=== PATIENT | female | born 1970 | race Caucasian/White ===

== ENCOUNTER 2019-03-20 21:38 | Inpatient (IN) | payer MEDICAID, OTHER ==
[~2019-03-20] VITALS: Ht 158.8 cm; Wt 80.2 kg
[~2019-03-20 21:38] MED LIST: HYDR-3240 PO; MONT10TA6 PO; TIOT18CA INH
[2019-03-20] MEDS ORDERED: ONDANSETRON 2MG/ML, 2ML IVPush ONE (22:30)
[2019-03-20] MEDS ORDERED: SODIUM CHLORIDE FLUSH 10ML SYR IVF ONE (22:30)
--- NOTE | 2019-03-20 22:48 | NUR ---
LABS COLLECTED AND TUBED TO LAB.
--- NOTE | 2019-03-20 22:50 | NUR ---
PT HERE FOR BILATERAL LEG SWELLING THAT IS CAUSING HER IMENSE PAIN THAT CANNOT BE CONTROLLED A THIS TIME. PT REPORTS THAT SHE CANNOT TAKE IT ANYMORE. PT VERY ANXIOUS AND REQUESTING DILAUDID AT THIS TIME. PT HAD PIV PLACED VIA US. PT TO BE MEDICATED. PT HAS NO S/SX OF TRUAMA AND PER PT IS AT BASELINE. PT CONNECTED TO MONITORS AND CALL LIGHT IN REACH. AWAITING FURTHER ORDERS.
[2019-03-20] MEDS ORDERED: ONDANSETRON 2MG/ML, 2ML ONE (22:53)
[2019-03-20] MEDS ORDERED: HYDROmorphone 2 MG/ML, 1ML ONE (22:54)
[2019-03-20 23:00] LABS: MEAN CORPUSCULAR HEMOGLOBIN 36.9 pg (27.0-34.8); MEAN CORPUSCULAR HGB CONC 32.8 g/dL (32.4-35.8); MEAN CORPUSCULAR VOLUME 112.3 fL (80-100); MEAN PLATELET VOLUME 8.6 fL (7.4-10.4); PLATELET COUNT 172 x10^3/uL (130-400); RED BLOOD COUNT 2.34 x10^6/uL (3.82-5.3); RED CELL DISTRIBUTION WIDTH 24.2 % (9.6-15.2)
[2019-03-20] MEDS: HYDROmorphone 2 MG/ML, 1ML IVPush PRN ×2 (23:00→23:14)
[2019-03-20 23:05] LABS: INTERNATIONAL NORMALIZED RATIO 1.07 (0.93-1.1); PROTHROMBIN TIME 11.2 Seconds (9.6-11.5)
[2019-03-20 23:08] LABS: ANION GAP 10 mmol/L (5-15); CALCIUM 8.6 mg/dL (8.5-10.1); CHLORIDE 99 mmol/L (98-107); MD YES
[2019-03-20 23:11] LABS: ANISOCYTOSIS 2+; BAND#(MANUAL) 1.45 x10^3/uL; BANDS%(MANUAL) 6 % (0-7); LYMPH#(MANUAL) 1.45 x10^3/uL (1-3.4); LYMPHS% (MANUAL) 6 % (22-44); METAMYELOCYTES# (MANUAL) 0.48 x10^3/uL (0-0); METAMYELOCYTES% (MANUAL) 2 % (0-1); MONOS#(MANUAL) 1.21 x10^3/uL (0.3-2.7); MONOS% (MANUAL) 5 % (2-9); MYELOCYTES# (MANUAL) 0.24 x10^3/uL (0-0); MYELOCYTES% (MANUAL) 1 % (0-0); NRBC % (MANUAL) 5 % (0-1); POLYCHROMASIA 1+; SEG#(MANUAL) 19.28 x10^3/uL (1.8-6.8); SEGS% (MANUAL) 80 % (42-75)
[2019-03-20 23:14] LABS: <PLATELET ESTIMATE> ADEQUATE; ALANINE AMINOTRANSFERASE 38 U/L (12-78); ALKALINE PHOSPHATASE 255 U/L (45-117); LARGE PLATELETS 1+; TOTAL PROTEIN 5.5 g/dL (6.4-8.2); TROPONIN I < 0.015 ng/mL (0.000-0.045)
[2019-03-20] MEDS ORDERED: CEFTRIAXONE PMX 1GM/50ML 50 ML IV ONE (23:30)
--- NOTE | 2019-03-21 00:39 | NUR ---
pt report called to tano on tele.
--- NOTE | 2019-03-21 00:39 | NUR ---
TRANSFER HELD BY UNNoel MARMOLEJO UNTIL US IS COMPLETED BY HIM.
[2019-03-21] MEDS ORDERED: ONDANSETRON ODT 4 MG PO PRN (01:00)
[2019-03-21 01:02] VITALS: BP 98/59
[2019-03-21] MEDS ORDERED: CEFTRIAXONE PMX 1GM/50ML 50 ML IV ONE (01:30)
[2019-03-21] MEDS: HEPARIN 5,000 UNITS/ML, 1ML SQ SCH ×3 (01:49→16:35)
[2019-03-21 05:54] LABS: ALBUMIN 1.9 g/dL (3.4-5.0); ANION GAP 8 mmol/L (5-15); CALCIUM 8.4 mg/dL (8.5-10.1); CHLORIDE 100 mmol/L (98-107)
[2019-03-21 05:54] LABS: MEAN CORPUSCULAR HEMOGLOBIN 36.9 pg (27.0-34.8); MEAN CORPUSCULAR HGB CONC 32.7 g/dL (32.4-35.8); MEAN CORPUSCULAR VOLUME 112.8 fL (80-100); MEAN PLATELET VOLUME 9.1 fL (7.4-10.4); PLATELET COUNT 170 x10^3/uL (130-400); RED BLOOD COUNT 2.25 x10^6/uL (3.82-5.3); RED CELL DISTRIBUTION WIDTH 24.4 % (9.6-15.2)
[2019-03-21 05:58] LABS: ALANINE AMINOTRANSFERASE 35 U/L (12-78); ALKALINE PHOSPHATASE 238 U/L (45-117); BILIRUBIN,TOTAL 4.6 mg/dL (0.2-1.0); CREATININE 0.46 mg/dL (0.55-1.02); TOTAL PROTEIN 5.5 g/dL (6.4-8.2)
[2019-03-21 06:30] LABS: MD YES
[2019-03-21 06:33] LABS: BAND#(MANUAL) 2.45 x10^3/uL; BANDS%(MANUAL) 12 % (0-7); LYMPH#(MANUAL) 2.24 x10^3/uL (1-3.4); LYMPHS% (MANUAL) 11 % (22-44); METAMYELOCYTES# (MANUAL) 0.82 x10^3/uL (0-0); METAMYELOCYTES% (MANUAL) 4 % (0-1); MONOS#(MANUAL) 1.63 x10^3/uL (0.3-2.7); MONOS% (MANUAL) 8 % (2-9); NRBC % (MANUAL) 4 % (0-1)
[2019-03-21 06:34] LABS: MYELOCYTES% (MANUAL) 1 % (0-0); SEGS% (MANUAL) 64 % (42-75)
[2019-03-21 06:38] LABS: ANISOCYTOSIS 2+; POLYCHROMASIA 1+
[2019-03-21 06:39] LABS: <PLATELET ESTIMATE> ADEQUATE; <PLT MORPHOLOGY> NORMAL PLT MORPH; SPHEROCYTES 1+
[2019-03-21 08:45] VITALS: BP 114/72
[2019-03-21] MEDS: HYDROmorphone 2 MG/ML, 1ML IVPush PRN ×3 (08:54→21:25)
[2019-03-21 11:39] LABS: CULTURE INDICATED? YES; MICROSCOPIC INDICATED
[2019-03-21 12:00] VITALS: BP 115/70
[2019-03-21 14:34] VITALS: BP 100/61
[2019-03-21] MEDS ORDERED: ALBUTEROL/IPRATROPIUM 2.5MG/0.5MG, 3 ML ONE (15:13)
[2019-03-21] MEDS ORDERED: ALBUTEROL SULFATE 2.5 MG/3 ML NPPB PRN (15:30)
[2019-03-21] MEDS: CEFTRIAXONE PMX 1GM/50ML 50 ML IV SCH (15:33)
[2019-03-21] MEDS ORDERED: SPIRONOLACTONE 50 MG TABLET PO SCH (16:00)
[2019-03-21] MEDS ORDERED: GABA300C10 PO (16:24)
[2019-03-21] MEDS ORDERED: GABAPENTIN 300 MG CAPSULE PO ONE (17:30)
[2019-03-21] MEDS ORDERED: FURO20TA3 PO (18:38)
[2019-03-21] MEDS ORDERED: MULT-658 PO (18:38)
[2019-03-21] MEDS ORDERED: FENO43CA3 PO (18:38)
[2019-03-21 20:16] VITALS: BP 99/60
[2019-03-21] MEDS: ALBUTEROL/IPRATROPIUM 2.5MG/0.5MG, 3 ML NPPB SCH (21:05)
[2019-03-21] MEDS: GABAPENTIN 300 MG CAPSULE PO SCH (21:25)
[2019-03-22] MEDS: HEPARIN 5,000 UNITS/ML, 1ML SQ SCH ×4 (01:08→15:19)
[2019-03-22 01:26] VITALS: BP 97/58
[2019-03-22] MEDS: HYDROmorphone 2 MG/ML, 1ML IVPush PRN ×5 (02:22→20:24)
[2019-03-22] MEDS: ALBUTEROL/IPRATROPIUM 2.5MG/0.5MG, 3 ML NPPB SCH ×3 (03:00→15:20)
[2019-03-22 06:01] LABS: CHLORIDE 97 mmol/L (98-107)
[2019-03-22 06:10] LABS: MEAN CORPUSCULAR HEMOGLOBIN 37.3 pg (27.0-34.8); MEAN CORPUSCULAR HGB CONC 32.6 g/dL (32.4-35.8); MEAN CORPUSCULAR VOLUME 114.4 fL (80-100); MEAN PLATELET VOLUME 9.6 fL (7.4-10.4); PLATELET COUNT 177 x10^3/uL (130-400); RED BLOOD COUNT 1.95 x10^6/uL (3.82-5.3)
[2019-03-22 06:11] LABS: ALANINE AMINOTRANSFERASE 36 U/L (12-78); ALBUMIN 1.9 g/dL (3.4-5.0); ALKALINE PHOSPHATASE 205 U/L (45-117); ANION GAP 11 mmol/L (5-15); BILIRUBIN, DIRECT 2.8 mg/dL (0.1-0.2); BILIRUBIN,INDIRECT 0.6 mg/dL (0.0-2.0); BILIRUBIN,TOTAL 3.4 mg/dL (0.2-1.0); CALCIUM 8.3 mg/dL (8.5-10.1); CREATININE 0.57 mg/dL (0.55-1.02); TOTAL PROTEIN 5.2 g/dL (6.4-8.2)
[2019-03-22 06:20] LABS: RED CELL DISTRIBUTION WIDTH 25.1 % (9.6-15.2)
[2019-03-22] MEDS ORDERED: MAGNESIUM SULFATE PMX 2GM/50ML 50 ML IV ONE (07:00)
[2019-03-22 07:32] LABS: MD YES
[2019-03-22 07:35] LABS: ANISOCYTOSIS 2+; BAND#(MANUAL) 1.87 x10^3/uL; BANDS%(MANUAL) 11 % (0-7); EOS#(MANUAL) 0.34 x10^3/uL (0.0-0.4); EOS% (MANUAL) 2 % (1-7); LYMPH#(MANUAL) 1.87 x10^3/uL (1-3.4); LYMPHS% (MANUAL) 11 % (22-44); MONOS#(MANUAL) 0.68 x10^3/uL (0.3-2.7); MONOS% (MANUAL) 4 % (2-9); NRBC % (MANUAL) 3 % (0-1); POLYCHROMASIA 1+; SEG#(MANUAL) 12.24 x10^3/uL (1.8-6.8); SEGS% (MANUAL) 72 % (42-75)
[2019-03-22 07:37] LABS: SPHEROCYTES 1+
[2019-03-22 07:38] LABS: <PLATELET ESTIMATE> ADEQUATE; LARGE PLATELETS 1+
[2019-03-22 08:15] VITALS: BP 95/50
[2019-03-22] MEDS: GABAPENTIN 300 MG CAPSULE PO SCH ×3 (08:16→20:24)
[2019-03-22] MEDS: FUROSEMIDE 40 MG TABLET PO SCH (08:17)
[2019-03-22] MEDS: SPIRONOLACTONE 50 MG TABLET PO SCH (08:17)
[2019-03-22] MEDS ORDERED: FUROSEMIDE 20 MG TABLET PO SCH (09:00)
[2019-03-22 12:20] VITALS: BP 132/73
[2019-03-22 13:24] LABS: MD YES; MEAN CORPUSCULAR HEMOGLOBIN 37.3 pg (27.0-34.8); MEAN CORPUSCULAR HGB CONC 32.6 g/dL (32.4-35.8); MEAN CORPUSCULAR VOLUME 114.5 fL (80-100); MEAN PLATELET VOLUME 9.5 fL (7.4-10.4); PLATELET COUNT 195 x10^3/uL (130-400); RED BLOOD COUNT 2.05 x10^6/uL (3.82-5.3); RED CELL DISTRIBUTION WIDTH 25.2 % (9.6-15.2)
[2019-03-22 14:08] LABS: BAND#(MANUAL) 1.21 x10^3/uL; BANDS%(MANUAL) 7 % (0-7); EOS#(MANUAL) 0.35 x10^3/uL (0.0-0.4); EOS% (MANUAL) 2 % (1-7); LYMPH#(MANUAL) 1.73 x10^3/uL (1-3.4); LYMPHS% (MANUAL) 10 % (22-44); METAMYELOCYTES# (MANUAL) 0.52 x10^3/uL (0-0); METAMYELOCYTES% (MANUAL) 3 % (0-1); MONOS#(MANUAL) 1.21 x10^3/uL (0.3-2.7); MONOS% (MANUAL) 7 % (2-9); NRBC % (MANUAL) 1 % (0-1)
[2019-03-22 14:10] LABS: MYELOCYTES# (MANUAL) 0.35 x10^3/uL (0-0); MYELOCYTES% (MANUAL) 2 % (0-0); SEGS% (MANUAL) 69 % (42-75)
[2019-03-22 14:14] LABS: ANISOCYTOSIS 2+; POLYCHROMASIA 1+
[2019-03-22 14:20] LABS: BASOPHILLIC STIPPLING 1+
[2019-03-22 14:28] LABS: <PLATELET ESTIMATE> ADEQUATE; <PLT MORPHOLOGY> NORMAL PLT MORPH; SPHEROCYTES 1+
[2019-03-22] MEDS: CEFTRIAXONE PMX 1GM/50ML 50 ML IV SCH (15:23)
[2019-03-22 20:08] VITALS: BP 105/66
[2019-03-22 20:27] LABS: MEAN CORPUSCULAR HEMOGLOBIN 35.9 pg (27.0-34.8); MEAN CORPUSCULAR HGB CONC 31.5 g/dL (32.4-35.8); MEAN CORPUSCULAR VOLUME 113.9 fL (80-100); MEAN PLATELET VOLUME 9.4 fL (7.4-10.4); PLATELET COUNT 189 x10^3/uL (130-400); RED BLOOD COUNT 1.99 x10^6/uL (3.82-5.3)
[2019-03-22 20:31] LABS: RED CELL DISTRIBUTION WIDTH 24.9 % (9.6-15.2)
[2019-03-22 20:51] LABS: MD YES
[2019-03-22 20:52] LABS: BAND#(MANUAL) 0.97 x10^3/uL; BANDS%(MANUAL) 6 % (0-7); EOS#(MANUAL) 0.16 x10^3/uL (0.0-0.4); EOS% (MANUAL) 1 % (1-7); LYMPH#(MANUAL) 0.97 x10^3/uL (1-3.4); LYMPHS% (MANUAL) 6 % (22-44); MONOS#(MANUAL) 1.29 x10^3/uL (0.3-2.7); MONOS% (MANUAL) 8 % (2-9); NRBC % (MANUAL) 1 % (0-1); SEG#(MANUAL) 12.72 x10^3/uL (1.8-6.8); SEGS% (MANUAL) 79 % (42-75)
[2019-03-22 20:53] LABS: ANISOCYTOSIS 2+; HYPOCHROMIA 1+; POLYCHROMASIA 1+
[2019-03-22 20:54] LABS: <PLATELET ESTIMATE> ADEQUATE
[2019-03-22 20:55] LABS: <PLT MORPHOLOGY> NORMAL PLT MORPH
[2019-03-23] VITALS: BP 115/67
[2019-03-23] MEDS: HYDROmorphone 2 MG/ML, 1ML IVPush PRN ×7 (00:02→23:13)
[2019-03-23] MEDS ORDERED: MAGNESIUM SULFATE 1 GM in SODIUM CHLORIDE 0.9% 50 ML IV ONE (06:00)
[2019-03-23 06:32] LABS: CHLORIDE 93 mmol/L (98-107)
[2019-03-23 06:42] LABS: ALANINE AMINOTRANSFERASE 35 U/L (12-78); ALKALINE PHOSPHATASE 197 U/L (45-117); ANION GAP 11 mmol/L (5-15); BILIRUBIN,TOTAL 3.6 mg/dL (0.2-1.0); CALCIUM 8.6 mg/dL (8.5-10.1); TOTAL PROTEIN 5.6 g/dL (6.4-8.2)
[2019-03-23 06:52] LABS: MEAN CORPUSCULAR HEMOGLOBIN 37.2 pg (27.0-34.8); MEAN CORPUSCULAR HGB CONC 32.8 g/dL (32.4-35.8); MEAN CORPUSCULAR VOLUME 113.5 fL (80-100); MEAN PLATELET VOLUME 9.6 fL (7.4-10.4); PLATELET COUNT 196 x10^3/uL (130-400); RED BLOOD COUNT 1.93 x10^6/uL (3.82-5.3); RED CELL DISTRIBUTION WIDTH 25.3 % (9.6-15.2)
[2019-03-23] MEDS: HEPARIN 5,000 UNITS/ML, 1ML SQ SCH ×3 (07:46→23:12)
[2019-03-23 07:50] LABS: BASOPHILS # (AUTO) 0.07 x10^3/uL (0-0.1); BASOPHILS % (AUTO) 0 % (0-1); EOSINOPHILS # (AUTO) 0.23 x10^3/uL (0-0.4); EOSINOPHILS % (AUTO) 1 % (1-7); LYMPHOCYTES # (AUTO) 2.02 x10^3/uL (1-3.4); LYMPHOCYTES % (AUTO) 12 % (22-44); MD SCAN; MONOCYTES % (AUTO) 5 % (2-9); NEUTROPHILS # (AUTO) 13.51 x10^3/uL (1.8-6.8); NEUTROPHILS % (AUTO) 81 % (42-75)
[2019-03-23] MEDS: GABAPENTIN 300 MG CAPSULE PO SCH ×3 (08:03→20:19)
[2019-03-23] MEDS: FUROSEMIDE 40 MG TABLET PO SCH (08:03)
[2019-03-23] MEDS: SPIRONOLACTONE 50 MG TABLET PO SCH (08:03)
[2019-03-23] MEDS ORDERED: IPRATROPIUM 0.5 MG/2.5 ML INHA NPPB SCH (09:00)
[2019-03-23 09:07] VITALS: BP 95/51
[2019-03-23 14:14] VITALS: BP 98/78
[2019-03-23 14:14] LABS: ANION GAP 10 mmol/L (5-15); CALCIUM 8.5 mg/dL (8.5-10.1); CHLORIDE 92 mmol/L (98-107); CREATININE 0.61 mg/dL (0.55-1.02)
[2019-03-23 14:16] LABS: MEAN CORPUSCULAR HEMOGLOBIN 37.5 pg (27.0-34.8); MEAN CORPUSCULAR HGB CONC 32.9 g/dL (32.4-35.8); MEAN PLATELET VOLUME 9.5 fL (7.4-10.4); PLATELET COUNT 205 x10^3/uL (130-400); RED BLOOD COUNT 1.88 x10^6/uL (3.82-5.3); RED CELL DISTRIBUTION WIDTH 24.8 % (9.6-15.2)
[2019-03-23 14:39] LABS: MD YES
[2019-03-23 14:41] LABS: BAND#(MANUAL) 1.23 x10^3/uL; BANDS%(MANUAL) 8 % (0-7); EOS#(MANUAL) 0.15 x10^3/uL (0.0-0.4); EOS% (MANUAL) 1 % (1-7); LYMPH#(MANUAL) 1.85 x10^3/uL (1-3.4); LYMPHS% (MANUAL) 12 % (22-44); METAMYELOCYTES# (MANUAL) 0.31 x10^3/uL (0-0); METAMYELOCYTES% (MANUAL) 2 % (0-1); MONOS#(MANUAL) 0.92 x10^3/uL (0.3-2.7); MONOS% (MANUAL) 6 % (2-9); NRBC % (MANUAL) 2 % (0-1); SEG#(MANUAL) 10.93 x10^3/uL (1.8-6.8); SEGS% (MANUAL) 71 % (42-75)
[2019-03-23 14:42] LABS: ANISOCYTOSIS 2+; HYPOCHROMIA 1+; POLYCHROMASIA 1+; SPHEROCYTES 1+
[2019-03-23 14:45] LABS: BASOPHILLIC STIPPLING 1+; TOXIC GRAN 1+
[2019-03-23 14:46] LABS: <PLATELET ESTIMATE> ADEQUATE; LARGE PLATELETS 1+
[2019-03-23] MEDS ORDERED: LACTULOSE 20 GM/30 ML UDC PO PRN (15:00)
[2019-03-23] MEDS ORDERED: BISACODYL 10 MG SUPP PR PRN (15:00)
[2019-03-23] MEDS ORDERED: SODIUM CHLORIDE 1 GM TABLET PO SCH (17:00)
[2019-03-23 19:30] VITALS: BP 97/60
[2019-03-23] MEDS: SENNA/DOCUSATE TABLET PO SCH (20:19)
[2019-03-23 22:55] LABS: MEAN CORPUSCULAR HEMOGLOBIN 37.8 pg (27.0-34.8); MEAN CORPUSCULAR HGB CONC 33.2 g/dL (32.4-35.8); MEAN CORPUSCULAR VOLUME 113.9 fL (80-100); MEAN PLATELET VOLUME 9.1 fL (7.4-10.4); PLATELET COUNT 225 x10^3/uL (130-400); RED BLOOD COUNT 1.87 x10^6/uL (3.82-5.3); RED CELL DISTRIBUTION WIDTH 25.1 % (9.6-15.2)
[2019-03-23 23:07] LABS: BASOPHILS # (AUTO) 0.05 x10^3/uL (0-0.1); BASOPHILS % (AUTO) 0 % (0-1); EOSINOPHILS # (AUTO) 0.56 x10^3/uL (0-0.4); EOSINOPHILS % (AUTO) 4 % (1-7); LYMPHOCYTES # (AUTO) 1.56 x10^3/uL (1-3.4); LYMPHOCYTES % (AUTO) 10 % (22-44); MD MORPH REVIEW ONLY; MONOCYTES # (AUTO) 0.78 x10^3/uL (0.2-0.8); MONOCYTES % (AUTO) 5 % (2-9); NEUTROPHILS # (AUTO) 12.18 x10^3/uL (1.8-6.8); NEUTROPHILS % (AUTO) 81 % (42-75)
[2019-03-23 23:08] LABS: ANISOCYTOSIS 2+; POLYCHROMASIA 1+; SPHEROCYTES 1+
[2019-03-23 23:09] LABS: <PLATELET ESTIMATE> ADEQUATE; LARGE PLATELETS 1+
[2019-03-24 01:06] VITALS: BP 104/64
[2019-03-24] MEDS: HYDROmorphone 2 MG/ML, 1ML IVPush PRN ×6 (02:15→20:50)
[2019-03-24 06:26] LABS: ANION GAP 11 mmol/L (5-15); CALCIUM 8.6 mg/dL (8.5-10.1); CHLORIDE 96 mmol/L (98-107)
[2019-03-24 06:28] LABS: MEAN CORPUSCULAR HEMOGLOBIN 37.7 pg (27.0-34.8); MEAN CORPUSCULAR HGB CONC 33.2 g/dL (32.4-35.8); MEAN CORPUSCULAR VOLUME 113.3 fL (80-100); MEAN PLATELET VOLUME 9.8 fL (7.4-10.4); PLATELET COUNT 227 x10^3/uL (130-400); RED BLOOD COUNT 1.93 x10^6/uL (3.82-5.3)
[2019-03-24 06:38] LABS: ALANINE AMINOTRANSFERASE 36 U/L (12-78); ALKALINE PHOSPHATASE 181 U/L (45-117); BILIRUBIN,TOTAL 3.7 mg/dL (0.2-1.0); CREATININE 0.46 mg/dL (0.55-1.02); TOTAL PROTEIN 5.8 g/dL (6.4-8.2)
[2019-03-24 06:46] VITALS: BP 105/62
[2019-03-24 06:49] LABS: BASOPHILS # (AUTO) 0.15 x10^3/uL (0-0.1); BASOPHILS % (AUTO) 1 % (0-1); EOSINOPHILS # (AUTO) 0.26 x10^3/uL (0-0.4); EOSINOPHILS % (AUTO) 2 % (1-7); LYMPHOCYTES # (AUTO) 1.76 x10^3/uL (1-3.4); LYMPHOCYTES % (AUTO) 13 % (22-44); MD SCAN; MONOCYTES # (AUTO) 0.73 x10^3/uL (0.2-0.8); MONOCYTES % (AUTO) 5 % (2-9); NEUTROPHILS # (AUTO) 11.11 x10^3/uL (1.8-6.8); NEUTROPHILS % (AUTO) 79 % (42-75)
[2019-03-24] MEDS: HEPARIN 5,000 UNITS/ML, 1ML SQ SCH ×3 (07:00→20:50)
[2019-03-24] MEDS ORDERED: LACTULOSE 20 GM/30 ML UDC PO PRN (08:00)
[2019-03-24] MEDS ORDERED: BISACODYL 10 MG SUPP PR PRN (08:00)
[2019-03-24] MEDS: DOCUSATE 50 MG/5 ML, 10ML UDC NG SCH (09:00)
[2019-03-24] MEDS ORDERED: DOCUSATE 50 MG/5 ML, 10ML UDC NG SCH (09:00)
[2019-03-24] MEDS ORDERED: DOCUSATE 100 MG CAPSULE PO SCH (09:00)
[2019-03-24] MEDS: DOCUSATE 100 MG CAPSULE PO SCH (09:22)
[2019-03-24] MEDS: FUROSEMIDE 40 MG TABLET PO SCH ×2 (09:22→16:06)
[2019-03-24] MEDS: GABAPENTIN 300 MG CAPSULE PO SCH ×3 (09:22→20:50)
[2019-03-24] MEDS: SPIRONOLACTONE 50 MG TABLET PO SCH (09:22)
[2019-03-24] MEDS ORDERED: HYDROmorphone 1 MG/ML, 1ML VIAL ONE (12:09)
[2019-03-24 14:29] VITALS: BP 104/59
[2019-03-24 17:25] LABS: OCCULT BLOOD NEGATIVE (NEGATIVE)
[2019-03-24 19:05] VITALS: BP 95/60
[2019-03-24] MEDS: SENNA/DOCUSATE TABLET PO SCH (20:50)
[2019-03-24] MEDS ORDERED: SENNA/DOCUSATE TABLET PO SCH (21:00)
[2019-03-25 00:50] VITALS: BP 98/63
[2019-03-25] MEDS: HYDROmorphone 2 MG/ML, 1ML IVPush PRN ×2 (01:53→05:42)
[2019-03-25 06:04] LABS: ALANINE AMINOTRANSFERASE 42 U/L (12-78); ALBUMIN 2.1 g/dL (3.4-5.0); ANION GAP 8 mmol/L (5-15); CHLORIDE 93 mmol/L (98-107); CREATININE 0.43 mg/dL (0.55-1.02)
[2019-03-25 06:06] LABS: ALKALINE PHOSPHATASE 177 U/L (45-117); BILIRUBIN,TOTAL 3.2 mg/dL (0.2-1.0); TOTAL PROTEIN 5.6 g/dL (6.4-8.2)
[2019-03-25 06:09] LABS: MEAN CORPUSCULAR HEMOGLOBIN 37.2 pg (27.0-34.8); MEAN CORPUSCULAR HGB CONC 32.4 g/dL (32.4-35.8); MEAN PLATELET VOLUME 9.3 fL (7.4-10.4); PLATELET COUNT 265 x10^3/uL (130-400); RED BLOOD COUNT 1.93 x10^6/uL (3.82-5.3); RED CELL DISTRIBUTION WIDTH 25.5 % (9.6-15.2)
[2019-03-25 06:46] LABS: MD SCAN
[2019-03-25 06:47] LABS: BASOPHILS # (AUTO) 0.07 x10^3/uL (0-0.1); BASOPHILS % (AUTO) 1 % (0-1); EOSINOPHILS # (AUTO) 0.36 x10^3/uL (0-0.4); EOSINOPHILS % (AUTO) 3 % (1-7); LYMPHOCYTES # (AUTO) 1.66 x10^3/uL (1-3.4); LYMPHOCYTES % (AUTO) 14 % (22-44); MONOCYTES # (AUTO) 0.83 x10^3/uL (0.2-0.8); MONOCYTES % (AUTO) 7 % (2-9); NEUTROPHILS # (AUTO) 9.22 x10^3/uL (1.8-6.8); NEUTROPHILS % (AUTO) 76 % (42-75)
[2019-03-25] MEDS ORDERED: POTASSIUM CHLORIDE 20 MEQ TAB.ER.PRT PO ONE ×2 (07:00→12:00)
[2019-03-25 07:42] VITALS: BP 87/46
[2019-03-25] MEDS: SPIRONOLACTONE 50 MG TABLET PO SCH (08:25)
[2019-03-25] MEDS: FUROSEMIDE 40 MG TABLET PO SCH (08:25)
[2019-03-25] MEDS: HEPARIN 5,000 UNITS/ML, 1ML SQ SCH (08:25)
[2019-03-25] MEDS: GABAPENTIN 300 MG CAPSULE PO SCH (08:25)
[2019-03-25] MEDS: DOCUSATE 50 MG/5 ML, 10ML UDC NG SCH (08:26)
[2019-03-25] MEDS: DOCUSATE 100 MG CAPSULE PO SCH (08:26)
[2019-03-25] MEDS ORDERED: HYDROcodone/APAP 10/325 MG TABLET PO PRN (10:00)
[2019-03-25] MEDS ORDERED: SPIR50TA PO (11:43)
[2019-03-25] MEDS ORDERED: FURO40TA6 PO (11:43)
[2019-03-25] MEDS ORDERED: HYDR-3307 PO (11:43)
[2019-03-25] MEDS ORDERED: POTA20TA14 PO (11:43)
[2019-03-25 12:20] VITALS: BP 88/45
== END 2019-03-25 15:20 | disposition home or self-care (01) | DRG 441 ==
LOC: ED 23:52 → EDIP 03-21 00:06 → 5SO 03-21 00:54 → 4EST 03-23 00:15
PROVIDERS: ADMIT Family Medicine; ATTEND Family Medicine
DX: K72.00 Acute and subacute hepatic failure without coma (principal); K85.90 Acute pancreatitis without necrosis or infection, unspecified; E87.1 Hypo-osmolality and hyponatremia; D72.823 Leukemoid reaction; E87.6 Hypokalemia; E88.09 Other disorders of plasma-protein metabolism, not elsewhere classified; F10.21 Alcohol dependence, in remission; F17.210 Nicotine dependence, cigarettes, uncomplicated; I50.9 Heart failure, unspecified; J44.9 Chronic obstructive pulmonary disease, unspecified; K42.9 Umbilical hernia without obstruction or gangrene; K74.60 Unspecified cirrhosis of liver; K76.0 Fatty (change of) liver, not elsewhere classified; Z88.3 Allergy status to other anti-infective agents; Z88.5 Allergy status to narcotic agent; Z88.0 Allergy status to penicillin; Z91.013 Allergy to seafood; Z80.3 Family history of malignant neoplasm of breast; Z90.49 Acquired absence of other specified parts of digestive tract; D53.9 Nutritional anemia, unspecified; D50.9 Iron deficiency anemia, unspecified; K70.9 Alcoholic liver disease, unspecified
CPT/HCPCS: 36415; 84145; 99285; J7620; 71045; 74176; 76700; 80048; 80053; 81001; 82105; 82140; 82247; 82248; 82272; 82607; 82728; 82962; 83516; 83540; 83550; 83605; 83690; 83735; 83880; 84439; 84443; 84484; 85025; 85610; 85730; 86038; 86850; 86900; 87040; 87086; 93005; 93306; 94640; 96374; G0378; J0696; J1170; J1644; J2405; J3475